=== PATIENT | male | born 1995 | race Caucasian/White ===

== ENCOUNTER 2018-10-12 18:07 | Emergency (ER) | payer OTHER ==
[2018-10-12 18:30] VITALS: BMI 26.6
[2018-10-12] MEDS ORDERED: ALBUTEROL SO4 2.5/IPRATROPIUM 0.5 INH SOL 3 ML VIAL.NEB. NEB ONE ×4 (18:30→20:11)
[2018-10-12] MEDS ORDERED: predniSONE 20 MG TABLET (UD) PO ONE (19:45)
--- NOTE | 2018-10-12 19:57 | PDOC ---
History of Present Illness - General Chief Complaint: Wheezing Stated Complaint: CHEST PAIN, S.O.B Time Seen by Provider: 10/12/18 19:42 History Source: Patient Exam Limitations: No Limitations - History of Present Illness Initial Comments: 10/12/18 19:48 Patient is 23 year old male with h/o asthma, depression and anxiety c/o chest tightness and coughing x 1 month worsening this morning. States he ran out of his MDI and so had to come to the ED for evaluation. States he smokes MJ last night he smoke a lot and thinks that smoking is his problem. Denies fever, sob , chest pain. Coughing productive of phlegm yellow. Patient requesting to have follow-up with a psychiatrist, due to his history of depression and anxiety. States that he needs medications that will help him to stop smoking. Currently no suicidal or homicidal ideation. PMD: Dr. Vinayak Manzano PMHX: as above PSOCHX: ex heroine user, (+) MJ daily, occ etoh ALL: NKDA GENERAL/CONSTITUTIONAL: [No fever or chills. No weakness. No weight change.] HEAD, EYES, EARS, NOSE AND THROAT: [No change in vision. No ear pain or discharge. No sore throat.] CARDIOVASCULAR: [No chest pain or shortness of breath.] RESPIRATORY: [No cough, wheezing, or hemoptysis.] GASTROINTESTINAL: [No nausea, vomiting, diarrhea or constipation. No rectal bleeding.] GENITOURINARY: [No dysuria, frequency, or change in urination.] MUSCULOSKELETAL: [No joint or muscle swelling or pain. No neck or back pain.] SKIN AND BREASTS: [No rash or easy bruising.] NEUROLOGIC: [No headache, vertigo, loss of consciousness, or loss of sensation.] PSYCHIATRIC: (+) depression or anxiety.] ENDOCRINE: [No increased thirst. No abnormal weight change.] HEMATOLOGIC/LYMPHATIC: [No anemia, easy bleeding, or history of blood clots.] ALLERGIC/IMMUNOLOGIC: [No hives or skin allergy. No latex allergy.] GENERAL: [The patient is awake, alert, and fully oriented, in mild distress.] HEAD: [Normal with no signs of trauma.] EYES: [Pupils equal, round and reactive to light, extraocular movements intact, sclera anicteric, conjunctiva clear.] ENT: [Ears normal, nares patent, oropharynx clear without exudates. Moist mucous membranes.] NECK: [Normal range of motion, supple without lymphadenopathy, JVD, or masses.] LUNGS: [Breath sounds equal, mild wheezes b/l, coughing with deep inspiration, and no crackles.] HEART: [Regular rate and rhythm, normal S1 and S2 without murmur, rub.] ABDOMEN: [Soft, nontender, normoactive bowel sounds. No guarding, no rebound. No masses.] EXTREMITIES: [Normal range of motion, no edema. No clubbing or cyanosis. No cords, erythema, or tenderness.] NEUROLOGICAL: [Cranial nerves II through XII grossly intact. Normal speech, normal gait.] PSYCH: [Normal mood, normal affect.] SKIN: [Warm, Dry, normal turgor, no rashes or lesions noted.] 4 Past History - Past Medical History Allergies/Adverse Reactions: Allergies Allergy/AdvReac Type Severity Reaction Status Date / Time No Known Allergies Allergy Verified 10/12/18 18:21 Home Medications: Ambulatory Orders Albuterol Sulfate Inhaler - [Ventolin HFA Inhaler -] 1 - 2 inh PO Q4H #1 inhaler 10/12/18 Albuterol Sulfate Inhaler - [Ventolin Hfa Inhaler -] 1 - 2 inh PO Q4H 10/12/18 Prednisone [Deltasone] 40 mg PO DAILY #10 tablet 10/12/18 - Suicide/Smoking/Psychosocial Hx Smoking History: Current every day smoker Information on smoking cessation initiated: No *Physical Exam - Vital Signs Last Vital Signs Temp Pulse Resp BP Pulse Ox 99.2 F 101 H 20 114/64 96 10/12/18 18:28 10/12/18 18:28 10/12/18 18:28 10/12/18 18:28 10/12/18 18:28 Moderate Sedation - Procedure Monitoring Vital Signs: Procedure Monitoring Vital Signs Temperature 99.2 F 10/12/18 18:28 Pulse Rate 101 H 10/12/18 18:28 Respiratory Rate 20 10/12/18 18:28 Blood Pressure 114/64 10/12/18 18:28 O2 Sat by Pulse Oximetry (%) 96 10/12/18 18:28 ED Treatment Course - Medications Given in the ED: ED Medications Discontinued Medications Generic Name Dose Route Start Last Admin Trade Name Freq PRN Reason Stop Dose Admin Albuterol/Ipratropium 2 amp 10/12/18 18:30 10/12/18 18:30 Duoneb - NEB 10/12/18 18:31 2 amp NOW ONE Administration Medical Decision Making - Medical Decision Making 10/12/18 19:48 Patient is 23 year old male with h/o asthma, depression and anxiety c/o chest tightness and coughing x 1 month worsening this morning. States he ran out of his MDI and so had to come to the ED for evaluation. States he smokes MJ last night he smoke a lot and thinks that smoking is his problem. Denies fever, sob , chest pain. Coughing productive of phlegm yellow. Symptoms consistent with asthma and bronchospasms. We will treat with nebs 3, and a course of prednisone taper. 10/12/18 21:52 p/e Lung clear, coughing resolved Selected Entries 10/12/18 21:39 Temperature 98.0 F Pulse Rate [ 98 H Left Apical] Respiratory 19 Rate Blood Pressure 116/74 [Left Arm] O2 Sat by Pulse 96 Oximetry (%) I discussed the physical exam findings, ancillary test results and final diagnoses with the patient. I answered all of the patient's questions. The patient was satisfied with the care received and felt comfortable with the discharge plan and treatment plan. The Patient agrees to follow up with the primary care physician within 24-72 hours. *DC/Admit/Observation/Transfer Diagnosis at time of Disposition: Asthma Qualifiers: Asthma severity: mild Asthma persistence: unspecified Asthma complication type : uncomplicated Qualified Code(s): J45.909 - Unspecified asthma, uncomplicated - Discharge Dispostion Disposition: HOME Condition at time of disposition: Stable - Prescriptions Prescriptions: Albuterol Sulfate Inhaler - [Ventolin HFA Inhaler -] 1 - 2 inh PO Q4H #1 inhaler Prednisone [Deltasone] 40 mg PO DAILY #10 tablet - Referrals Referrals: Vinayak Montoya MD [Primary Care Provider] - Horace Prieto MD [Staff Physician] - Nguyễn Ta NP [Nurse Practitioner] - - Patient Instructions Printed Discharge Instructions: DI for Asthma -- Adult Additional Instructions: Your Discharge Instructions: You must call primary care physician within 24 hours to arrange follow-up. Return to the Emergency Department with any new, persistent or worsening symptoms, for fever, chills, SOB, dizziness or any other concerning changes that may occur. We have provided the number is a for psychiatric services, call for follow-up. - Post Discharge Activity
[2018-10-12] MEDS ORDERED: predniSONE 20 MG TABLET (UD) ONE ×2 (20:03→20:11)
[2018-10-12] MEDS ORDERED: ALBUTEROL SO4 8 GM HFA INHALER IH ONE (21:39)
[2018-10-12 21:40] VITALS: BP 116/74; PULSE 98; TEMP 98
== END 2018-10-12 22:25 | disposition home or self-care (01) ==
LOC: JER 18:07
PROC: 3E0F7GC Introduction of Other Therapeutic Substance into Respiratory Tract, Via Natural or Artificial Opening (ICD-10-PCS; principal; 2018-10-12)
PROC: 3E0F7GC Introduction of Other Therapeutic Substance into Respiratory Tract, Via Natural or Artificial Opening (ICD-10-PCS; 2018-10-12)
PROC: 3E0F7GC Introduction of Other Therapeutic Substance into Respiratory Tract, Via Natural or Artificial Opening (ICD-10-PCS; 2018-10-12)
DX: J45.909 Unspecified asthma, uncomplicated (principal); F41.8 Other specified anxiety disorders; F32.9 Major depressive disorder, single episode, unspecified
CPT/HCPCS: 99282-25